=== PATIENT | female | born 1990 | race American Indian/Alaskan Native ===

== ENCOUNTER 2017-01-02 03:22 | Emergency (ER) | payer MEDICAID ==
[2017-01-02 03:35] VITALS: BP 117/71
== END 2017-01-02 09:00 | disposition left against medical advice (07) ==
LOC: ED 03:22
DX: R51 Headache (principal); M54.9 Dorsalgia, unspecified; Z53.21 Procedure and treatment not carried out due to patient leaving prior to being seen by health care provider